=== PATIENT | female | born 1995 | race African-American/Black ===

== ENCOUNTER 2018-12-20 20:51 | Emergency (ER) | payer OTHER, SELFPAY | END 2018-12-20 21:12 | disposition home or self-care (01) | LOC: BURERS 20:51 | DX: H00.016 Hordeolum externum left eye, unspecified eyelid (principal) | CPT/HCPCS: 99281 ==

== ENCOUNTER 2021-10-26 20:51 | Emergency (ER) | payer SELFPAY | END 2021-10-26 21:19 | disposition home or self-care (01) | LOC: BURERS 20:51 | DX: S03.03XA Dislocation of jaw, bilateral, initial encounter (principal); X58.XXXA Exposure to other specified factors, initial encounter | CPT/HCPCS: 99283 ==